=== PATIENT | female | born 1955 | race Caucasian/White ===

== ENCOUNTER 2021-08-13 16:29 | Emergency (ER) | payer MEDICARE ==
[~2021-08-13 16:29] MED LIST: GABAPENTIN600 MG PO; HYDROCODON-ACE1 EAC6 PO; LIDOCAINE 5% P1 EACH TOP; MORPHINE SULFAT15 MG PO; NARCAN4 MG; NEURONTIN 400M400 MG PO; NEURONTIN300 MG PO; NUCYNTA ER50 MG PO; OXYCODONE HCL15 M1 PO; OXYCODONE-ACET1 EACH PO; TIZANIDINE HCL2 MG PO; TYLENOL325 M1 PO
[2021-08-13 17:28] LABS: BASOPHIL 0.4 % (0-2); EOSINOPHIL 0.2 % (0-7); HCT 28.1 % (37.0-47.0); HGB 8.2 g/dl (12.5-16.0); LYMPHOCYTE 8.6 % (15-48); MCH 22.5 pg (25.0-31.0); MCHC 29.2 g/dL (32.0-36.0); MCV 77.2 fL (78.0-100.0); MONOCYTE 7.6 % (0-12); NEUTROPHIL 82.6 % (41-80); NRBC 0; PLT 219 K/uL (150-400); RBC 3.64 M/uL (4.20-5.40); RDW 17.2 % (11.5-14.0); WBC 13.5 K/uL (4.0-10.5)
[2021-08-13 17:40] LABS: LACTIC ACID 1.9 mmol/L (0.4-1.9)
[2021-08-13 17:41] LABS: ALKALINE PHOSHATASE 118 U/L (46-116); ALT 32 U/L (14-59); AST 39 U/L (15-37); BILIRUBIN - TOTAL 0.6 mg/dL (0.2-1.0); BUN 11 mg/dL (7-18); BUN/CREAT RATIO (CALC) 18.6 RATIO; CHLORIDE 91 mmol/L (98-107); CO2 (BICARBONATE) 32 mmol/L (21-32); CREATININE 0.59 mg/dL (0.51-0.95); GLOBULIN (CALCULATION) 4.4 g/dL; GLUCOSE 90 mg/dL (74-106); POTASSIUM 2.9 mmol/L (3.5-5.1); TOTAL PROTEIN 7.4 g/dL (6.4-8.2)
[2021-08-13 17:42] LABS: ACETAMINOPHEN (TYLENOL) < 2.0 ug/mL (10.0-30.0)
[2021-08-13 17:50] LABS: BILIRUBIN 1+ mg/dL (NEGATIVE); BLOOD TRACE-INTACT Ery/uL (NEGATIVE); CLARITY CLEAR (CLEAR); COLOR YELLOW (YELLOW); GLUCOSE (U) NORMAL (NORMAL); LEUKOCYTES NEGATIVE Leu/uL (NEGATIVE); NITRITE NEGATIVE (NEGATIVE); PROTEIN 1+ mg/dL (NEGATIVE)
[2021-08-13 18:02] LABS: AMPHETAMINES NEGATIVE (NEGATIVE); BARBITURATES NEGATIVE (NEGATIVE); ECSTASY (MDMA) NEGATIVE (NEGATIVE); MARIJUANA (THC) NEGATIVE (NEGATIVE); METHADONE NEGATIVE (NEGATIVE); OPIATES NEGATIVE (NEGATIVE); OXYCODONE POSITIVE (NEGATIVE)
[2021-08-13 18:04] LABS: BACTERIA 1+; URINARY RBC RARE; URINARY WBC RARE
[2021-08-13 18:05] LABS: AMORPHOUS URATES CRYSTALS TRACE
[2021-08-13 20:00] LABS: FT4 (FREE T4) 1.1 ng/dL (0.76-1.46)
== END 2021-08-13 23:00 | disposition home or self-care (01) ==
LOC: FER 16:29
PROVIDERS: Emergency Medicine
DX: R44.1 Visual hallucinations (principal); R44.0 Auditory hallucinations; E87.6 Hypokalemia; J44.9 Chronic obstructive pulmonary disease, unspecified; F17.210 Nicotine dependence, cigarettes, uncomplicated; Z88.8 Allergy status to other drugs, medicaments and biological substances; Z88.6 Allergy status to analgesic agent
CPT/HCPCS: 36415; 36600; 70450; 71250; 80053; 80305; 81001; 82140; 82803; 83605; 84145; 84439; 84443; 85025; 87040; 87088; 93005; G0480; J1170; J7040

== ENCOUNTER 2021-10-20 04:51 | Emergency (ER) | payer MEDICARE ==
[~2021-10-20 04:51] MED LIST changes: +GABAPENTIN800 MG PO; +MORPHINE SULFAT20 M1 PO; +PERCOCET 10-321 EACH PO; +PERCOCET 5-3251 EACH PO
[2021-10-20 05:45] LABS: BASOPHIL 0.5 % (0-2); EOSINOPHIL 2.3 % (0-7); HCT 31.8 % (37.0-47.0); HGB 9.6 g/dl (12.5-16.0); MCH 26.6 pg (25.0-31.0); MCHC 30.2 g/dL (32.0-36.0); MCV 88.1 fL (78.0-100.0); MONOCYTE 5.4 % (0-12); MPV 13.4 fL (6.0-9.5); NEUTROPHIL 83.3 % (41-80); NRBC 0; PLT 228 K/uL (150-400); RBC 3.61 M/uL (4.20-5.40); RDW 18.8 % (11.5-14.0); WBC 12.8 K/uL (4.0-10.5)
[2021-10-20 06:21] LABS: ALBUMIN 2.3 g/dL (3.4-5.0); BILIRUBIN - TOTAL 0.3 mg/dL (0.2-1.0); C-REACTIVE PROTEIN 6.2 mg/dL (<=0.90); CREATININE 0.42 mg/dL (0.51-0.95); GLOBULIN (CALCULATION) 3.9 g/dL; POTASSIUM 3.8 mmol/L (3.5-5.1); TOTAL PROTEIN 6.2 g/dL (6.4-8.2)
== END 2021-10-20 11:38 | disposition other institution (70) ==
LOC: FER 04:51
PROVIDERS: Emergency Medicine
DX: G89.18 Other acute postprocedural pain (principal); M79.604 Pain in right leg; J44.9 Chronic obstructive pulmonary disease, unspecified; F17.200 Nicotine dependence, unspecified, uncomplicated; Z88.8 Allergy status to other drugs, medicaments and biological substances
CPT/HCPCS: 36415; 80053; 84145; 85025; 86140; 87040; J1170